=== PATIENT | female | born 1960 | race Caucasian/White ===

== ENCOUNTER 2017-11-12 12:45 | Outpatient (CLI) | payer OTHER | END 2017-11-12 12:46 | disposition home or self-care (01) | LOC: BICMAMMO 12:45 | PROVIDERS: ATTEND Family Medicine | DX: Z12.31 Encounter for screening mammogram for malignant neoplasm of breast (principal) | CPT/HCPCS: 77063; 77067 ==

== ENCOUNTER 2022-10-26 13:42 | Outpatient (CLI) | payer BC | END 2022-10-26 13:43 | disposition home or self-care (01) | LOC: LABBT 13:42 | PROVIDERS: ATTEND Neurological Surgery | DX: Z01.810 Encounter for preprocedural cardiovascular examination (principal) | CPT/HCPCS: 93005; 93010 ==

== ENCOUNTER 2022-10-31 06:55 | Day surgery (SDC) | payer BC ==
[2022-10-26 14:27] VITALS: BMI 25.7
[2022-10-31] MEDS ORDERED: PROPOFOL 200 MG/20 ML VIAL ONE (07:48)
[2022-10-31] MEDS ORDERED: Ketorolac Tromethamine 30 MG/ML VIAL ONE (07:48)
[2022-10-31] MEDS ORDERED: diphenhydrAMINE 50 MG/ML VIAL ONE (07:48)
[2022-10-31] MEDS ORDERED: Lidocaine 1% PF 5 ML VIAL ONE (07:48)
[2022-10-31] MEDS ORDERED: Ondansetron PF 4 MG/2 ML Vial ONE (07:48)
[2022-10-31] MEDS ORDERED: PHENYLEPHRINE-NS 100 MCG/ML 10 ML SYRINGE ONE (07:48)
[2022-10-31] MEDS ORDERED: Rocuronium Bromide 10 MG/ML (10ML VIAL) ONE (07:48)
[2022-10-31] MEDS ORDERED: Sodium Chloride 0.9% 100 ML ONE ×2 (08:21→14:13)
[2022-10-31] MEDS ORDERED: EPINEPHrine 1 MG/ML AMP ONE ×2 (08:21→08:24)
[2022-10-31] MEDS ORDERED: CEFAZOLIN 2 GM VIAL ONE ×2 (08:21→14:13)
[2022-10-31] MEDS ORDERED: Bupivacaine PF 0.5% 30 ML VIAL ONE (08:21)
[2022-10-31] MEDS ORDERED: fentaNYL PF 100 MCG/2 ML SYRINGE ONE (08:32)
[2022-10-31] MEDS ORDERED: Scopolamine 1.5 mg/72 hour Patch ONE (09:13)
[2022-10-31] MEDS ORDERED: SUGAMMADEX SODIUM 200 MG/2 ML VIAL ONE (09:30)
[2022-10-31] MEDS ORDERED: Fentanyl 250 MCG/5 ML VIAL ONE (10:33)
[2022-10-31] MEDS ORDERED: HYDROmorphone 0.5 MG/0.5 ML SYRINGE ONE ×2 (11:46→12:08)
== END 2022-10-31 15:00 | disposition home or self-care (01) ==
LOC: SDC 06:55
PROVIDERS: ATTEND Neurological Surgery
PROC: 00NY0ZZ Release Lumbar Spinal Cord, Open Approach (ICD-10-PCS; principal; 2022-10-31)
DX: M48.062 Spinal stenosis, lumbar region with neurogenic claudication (principal); Z90.710 Acquired absence of both cervix and uterus; Z88.8 Allergy status to other drugs, medicaments and biological substances; Z88.2 Allergy status to sulfonamides; Z79.899 Other long term (current) drug therapy
CPT/HCPCS: J0171; J1170; J1200; J1885; J2405; J2704; J3010; J3490; S0020